=== PATIENT | female | born 1995 | race African-American/Black ===

== ENCOUNTER 2018-03-12 20:59 | Emergency (ER) | payer MEDICAID ==
[~2018-03-12] VITALS: Ht 152.4 cm; Wt 112.5 kg
[2018-03-12 21:15] VITALS: BP 148/53
== END 2018-03-12 22:40 | disposition left against medical advice (07) ==
LOC: ER 20:59
DX: Z53.21 Procedure and treatment not carried out due to patient leaving prior to being seen by health care provider (principal)